=== PATIENT | male | born 1990 | race Caucasian/White ===

== ENCOUNTER 2016-11-28 11:49 | Emergency (ER) | payer SELFPAY ==
--- NOTE | 2016-11-28 12:02 | NUR ---
pt refused to be triaged, pt opts to go to [facility]
== END 2016-11-28 12:02 | disposition left against medical advice (07) ==
LOC: ER 11:54
DX: Z53.21 Procedure and treatment not carried out due to patient leaving prior to being seen by health care provider (principal)
CPT/HCPCS: A4606

== ENCOUNTER 2018-11-29 14:11 | Emergency (ER) | payer SELFPAY ==
[~2018-11-29] VITALS: Ht 180.3 cm; Wt 78.0 kg
[2018-11-29] MEDS ORDERED: OLANZAPINE 10 MG VIAL IM ONE ×5 (14:50→19:29)
--- NOTE | 2018-11-29 14:50 | NUR ---
PT REMOVED HOSPITAL GOWN AND BOXERS, IS WALKING AROUND IN HALLWAYS COMPLETELY NAKED. PT ASKED TO RETURN TO ROOM AND IS REDIRECTABLE. NOTIFIED MD OF PT'S ACTIONS.
--- NOTE | 2018-11-29 14:50 | NUR ---
PT BIB SELF C/O ANXIETY AND CP REPORTING HE THOUGHT HE WAS HAVING A HEART ATTACK INITIALLY BUT NOW THINKS HE IS NOT AND DENIES PAIN. PT APPEARS DELUSIONAL AND ACTING BIZARRELY BUT IS REDIRECTABLE UPON REPEATED ASKING. RESP EVEN UNLABORED. SKIN WARM DRY. AMBULATORY STEADY GAIT. IN ER BED 11 WITH SITTER.
--- NOTE | 2018-11-29 14:56 | NUR ---
PT MEDICATED WITH 5MG ZYPREXA IM PER VERBAL ORDER
[2018-11-29 15:13] LABS: BASOPHILS # (AUTO) 0.2 /CMM (0.0-0.2); BASOPHILS % (AUTO) 2.4 % (0.0-2.0); EOSINOPHILS % (AUTO) 0.3 % (0.0-6.0); HEMATOCRIT 40 % (39-51); HEMOGLOBIN 13.8 g/dL (13.5-17.5); LYMPHOCYTES # (AUTO) 1.5 /CMM (0.8-4.8); LYMPHOCYTES % (AUTO) 16.2 % (20.0-44.0); MEAN CORPUSCULAR HGB CONC 35 g/dl (31.0-36.0); MEAN CORPUSCULAR VOLUME 94 fL (80-96); MONOCYTES # (AUTO) 0.6 /CMM (0.1-1.30); MONOCYTES % (AUTO) 6.5 % (2.0-12.0); NEUTROPHILS # (AUTO) 7.1 /CMM (1.8-8.9); NEUTROPHILS % (AUTO) 74.6 % (43.0-81.0); PLATELET COUNT (AUTO) 237 /CMM (150-450); RED BLOOD CELL COUNT(AUTO) 4.24 MIL/uL (4.5-6.0); WHITE BLOOD COUNT (AUTO) 9.5 K/uL (4.3-11.0)
[2018-11-29 15:20] LABS: CALCIUM, SERUM 8.8 mg/dL (8.5-10.1); CARBON DIOXIDE 24 mmol/L (21-32); CHLORIDE 92 mmol/L (98-107); CREATININE 1.2 mg/dL (0.6-1.3); GLUCOSE 98 mg/dL (74-106); POTASSIUM 3.4 mmol/L (3.5-5.1); SODIUM SERUM 129 mmol/L (136-145); UREA NITROGEN, BLOOD 10 mg/dL (7-18)
[2018-11-29 15:25] LABS: ALANINE AMINOTRANSFERASE 21 U/L (12-78); ALBUMIN 4.1 g/dL (3.4-5.0); ALCOHOL, BLOOD < 3 mg/dL (0-0); ALKALINE PHOSPHATASE 60 U/L (46-116); ASPARTATE AMINOTRANSFERASE 24 U/L (15-37); BILIRUBIN,DIRECT 0.2 mg/dL (0.0-0.2); BILIRUBIN,TOTAL 0.9 mg/dL (0.2-1.0); TOTAL PROTEIN, SERUM 7.1 g/dL (6.4-8.2)
[2018-11-29 15:26] LABS: ACETAMINOPHEN 0 ug/ml (10-30); SALICYLATE < 2.8 mg/dL (2.8-20.0)
[2018-11-29 15:53] LABS: THYROID STIMULATING HORMONE 2.385 uIU/mL (0.358-3.74)
[2018-11-29] MEDS ORDERED: IV NS 0.9% 1,000 ML BAG IV ONE (16:00)
--- NOTE | 2018-11-29 16:00 | NUR ---
PT REFUSING IV AND IVF, ASKING ONLY FOR BOTTLED WATER. PT STATES HE DOESN'T NEED SODIUM IN HIS BODY AND "I'M FLUSHING EVERYTHING OUT". SPEECH IS DELUSIONAL, AND PT THINKS SOMETHING WAS IMPLANTED IN HIS HEART. PT IS REDIRECTABLE BUT PSYCHOTIC. UPON ASKING ORIENTATION QUESTIONS, PT IS ABLE TO ANSWER CORRECTLY THE TIME, DATE, AND PLACE BUT NOT SITUATION.
[2018-11-29 16:21] LABS: APPEARANCE,URINE Clear (CLEAR); BILIRUBIN,URINE Negative (NEGATIVE); BLOOD, URINE Negative Ery/uL (NEGATIVE); COLOR,URINE Yellow (YELLOW); KETONES,URINE Trace (NEGATIVE); LEUKOCYTE ESTERASE ,URINE Negative (NEGATIVE); NITRITE, URINE Negative (NEGATIVE); PROTEIN,URINE Negative (NEGATIVE); UGLUCOSE Negative (NEGATIVE); UROBILINOGEN,URINE 0.2 EU/dL (0.2)
[2018-11-29 16:27] LABS: BACTERIA,URINE Rare /HPF (None Seen); RBC,URINE 0-2 /HPF (0-2); WBC,URINE NONE SEEN /HPF (0-3)
[2018-11-29 16:28] LABS: SQUAMOUS EPITHELIAL CELL,UR Rare /HPF (None Seen)
--- NOTE | 2018-11-29 16:48 | NUR ---
RITA YEN CALLED AND PROVIDED PATIENTS FATHERS PHONE #[phone].
--- NOTE | 2018-11-29 17:16 | NUR ---
PT NOW CONSENTS TO IV AND IVF
--- NOTE | 2018-11-29 17:25 | NUR ---
CALLED [employer]HS SURGEON/GENERAL DERMATOLOGIST MANAGER PROGRAMS AND LEFT A MESSAGE
--- NOTE | 2018-11-29 18:57 | NUR ---
PT REFUSING VS AT THIS TIME
--- NOTE | 2018-11-29 19:26 | NUR ---
REWPORT GIVEN TO MITESH CEDENO FOR LELIA. UPDATED PARENTS ON PLAN OF CARE.
--- NOTE | 2018-11-29 23:59 | NUR ---
Patient is resting comfortably in bed with eyes closed. Easily aroused. VSS
--- NOTE | 2018-11-30 02:50 | NUR ---
SATINDER MUKHERJEE AT [facility] Addendum: 11/30/18 at 0519 by RADHA KYLER DOUGLAS'S NAME TO RUBEN
--- NOTE | 2018-11-30 03:34 | NUR ---
Patient is resting comfortably in bed with eyes closed. Easily aroused. VSS
--- NOTE | 2018-11-30 05:21 | NUR ---
Patient discharged to home in stable condition. PT refused the rx and the Written after care instructions.IV removed. Catheter intact and site benign. Pressure and 4x4 applied to site. No bleeding noted. pt was provided w/ proper clothing as he threw away his clothes upon arrival!
[2018-11-30 05:38] VITALS: BP 127/86
== END 2018-11-30 05:21 | disposition home or self-care (01) ==
LOC: ER 14:15
DX: F29 Unspecified psychosis not due to a substance or known physiological condition (principal); F23 Brief psychotic disorder; F22 Delusional disorders; F19.10 Other psychoactive substance abuse, uncomplicated; Z88.5 Allergy status to narcotic agent; Z60.2 Problems related to living alone
CPT/HCPCS: 36415; 80048; 80076; 80305; 80307; 80329; 81001; 84439; 84443; 85025; 96372 ×2; 99284; G0480; J3490 ×2; 81000-TC